=== PATIENT | female | born 1960 | race Caucasian/White ===

== ENCOUNTER → 2018-08-13 | Outpatient (CLI) | payer MEDICAID | LOC: M.RAD 08-07 08:39 | DX: Z12.31 Encounter for screening mammogram for malignant neoplasm of breast (principal); Z13.820 Encounter for screening for osteoporosis; M85.89 Other specified disorders of bone density and structure, multiple sites; Z78.0 Asymptomatic menopausal state ==

== ENCOUNTER → 2018-08-15 | Outpatient (CLI) | payer MEDICAID | LOC: M.ULTRA 12:11 | DX: I73.9 Peripheral vascular disease, unspecified (principal) ==

== ENCOUNTER → 2018-08-27 | Outpatient (CLI) | payer MEDICAID | LOC: M.ULTRA 07:10 | DX: N28.1 Cyst of kidney, acquired (principal) ==

== ENCOUNTER → 2018-09-13 | Outpatient (CLI) | payer MEDICAID | LOC: M.CT 09-06 13:37 | DX: I77.4 Celiac artery compression syndrome (principal); I70.202 Unspecified atherosclerosis of native arteries of extremities, left leg; I70.291 Other atherosclerosis of native arteries of extremities, right leg; K55.1 Chronic vascular disorders of intestine; R91.1 Solitary pulmonary nodule; N28.1 Cyst of kidney, acquired; F17.210 Nicotine dependence, cigarettes, uncomplicated ==

== ENCOUNTER → 2018-09-18 | Outpatient (CLI) | payer MEDICAID | LOC: M.NUC 09-17 07:45 | DX: R10.13 Epigastric pain (principal); K55.1 Chronic vascular disorders of intestine; I77.4 Celiac artery compression syndrome; F17.210 Nicotine dependence, cigarettes, uncomplicated; Z82.49 Family history of ischemic heart disease and other diseases of the circulatory system; Z83.3 Family history of diabetes mellitus; Z80.3 Family history of malignant neoplasm of breast; Z80.0 Family history of malignant neoplasm of digestive organs ==

== ENCOUNTER → 2018-09-27 | Outpatient (CLI) | payer MEDICAID ==
[~2018-09-27] VITALS: Ht 160 cm; Wt 49.4 kg
[~2018-09-27] MED LIST: ASPIR 8181 MG PO; ATORVASTATIN CA40 MG PO; CARVEDILOL3.125 MG PO; NITROGLYCERIN0.4 MG SUBLING; PAXIL10 MG PO; PLAVIX 75 MG TA75 M1 PO; SPIRONOLACTONE25 M1 PO
[2018-09-27 14:05] VITALS: BP 124/77
== END ==
LOC: M.INT 09-24 14:00
DX: I74.5 Embolism and thrombosis of iliac artery (principal); I70.212 Atherosclerosis of native arteries of extremities with intermittent claudication, left leg; Z79.899 Other long term (current) drug therapy; F17.210 Nicotine dependence, cigarettes, uncomplicated

== ENCOUNTER 2018-10-05 08:01 | Inpatient (IN) | payer MEDICAID ==
[2018-10-05] VITALS (15 sets, daily range): BP systolic 97–135; BP diastolic 40–83
[~2018-10-05] VITALS: Ht 160 cm; Wt 48.5 kg
[~2018-10-05 08:01] MED LIST changes: -ASPIR 8181 MG PO; -ATORVASTATIN CA40 MG PO; -CARVEDILOL3.125 MG PO; -NITROGLYCERIN0.4 MG SUBLING; -PLAVIX 75 MG TA75 M1 PO; -SPIRONOLACTONE25 M1 PO
[2018-10-05 08:49] LABS: HEMATOCRIT 38.2 % (37.0-47.0); HEMOGLOBIN 13.3 gm/dL (12.0-15.0); MCH 33.2 pg (26.0-34.0); MCHC 34.8 g/dL (28.0-37.0); MCV 95.2 fL (80.0-100.0); MPV 6.4 fl. (7.2-11.1); RBC 4.01 mil/uL (4.20-5.00); RDW-CV 13.2 % (10.5-14.5); WBC 10.7 thou/uL (4.0-11.0)
[2018-10-05 08:55] LABS: CALCIUM 8.9 mg/dL (8.5-10.1); POTASSIUM 4.1 mmol/L (3.5-5.1)
[2018-10-05 08:56] LABS: PROTIME 9.9 Seconds (9.20-11.50)
--- NOTE | 2018-10-05 15:01 | EKG ---
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
--- NOTE | 2018-10-05 16:23 | NUR ---
PRIOR TO TRANSFER TO THE ICU, PATIENT RECEIVED 600MG PLAVIX PO.
[2018-10-05 16:35] LABS: TROPONIN-I LEVEL 0.68 ng/mL (<0.06)
--- NOTE | 2018-10-05 16:46 | EKG ---
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1960 Requested By: Gabriel Guzmán Order Number: [id number] Olga MD: Rafael Mcmanus Measurements Intervals [place] Rate: 73 P: 81 [place]: 135 QRS: 75 QRSD: 82 T: 66 QT: 412 QTc: 454 Interpretive Statements Sinus rhythm Borderline low voltage, extremity leads Compared to ECG 10/05/2018 13:34:34 Myocardial infarct finding no longer present Electronically Signed On 10-05-2018 16:46:32 CDT by Rafael Mcmanus [email or web address] <ELECTRONICALLY SIGNED> By: Rafael Mcmanus MD, [facility] 10/05/18 1646 1547 1547 Rafael Mcmanus MD, [facility] /EPI
--- NOTE | 2018-10-05 16:56 | 2DMMODE ---
[place] [address] 2 D/M-MODE ECHOCARDIOGRAM Name: MISJOAO JARED Room: [address] IN [facility]#: [id number] Admission: 10/05/18 Attend Phys: Gabriel Guzmán Discharge: Date of : 60 Date of Service: 10/05/18 1656 Report #: [id number] THIS REPORT FOR: //name// APPROVED REPORT Study performed: 10/05/2018 15:16:26 EXAM: Comprehensive 2D, Doppler, and color-flow Echocardiogram Patient Location: In-Patient Room #: [facility] [place] Status: 3 BSA: 1.56 HR: 79 bpm BP: 117/81 mmHg Rhythm: NSR Other Information Study Quality: Good Indications Acute MA Chest Pain 2D Dimensions IVSd: 8.59 (7-11mm) LVOT Diam: 18.34 (18-24mm) LVDd: 41.83 mm PWd: 7.63 (7-11mm) Ascending Ao: 27.79 (22-36mm) LVDs: 29.94 (25-40mm) Aortic Root: 26.73 mm Volumes Left Atrial Volume (Systole) LA ESV Index: 19.30 mL/m2 Aortic Valve AoV Peak Dylan.: 1.27 m/s AO Peak Gr.: 6.46 mmHg LVOT Max P.02 mmHg AO Mean Gr.: 3.20 mmHg LVOT Mean P.94 mmHg LVOT Max V: 0.71 m/s AO V2 VTI: 26.32 cm LVOT Mean V: 0.44 m/s LAMAR (VTI): 1.65 cm2 LVOT V1 VTI: 16.44 cm Mitral Valve E/A Ratio: 1.03 MV Decel. Time: 147.11 [place] [address] 2 D/M-MODE ECHOCARDIOGRAM Name: JOAO ABEBE Room: [address] IN .R.#: [id number] Admission: 10/05/18 Attend Phys: Gabriel Guzmán Discharge: Date of : 60 Date of Service: 10/05/18 1656 Report #: [id number] MV E Max Dylan.: 0.69 m/s MV PHT: 42.66 ms MVA (PHT): 5.16 cm2 TDI E/Lateral E': 7.67 E/Medial E': 8.63 Medial E' Dylan.: 0.08 m/s Lateral E' Dylan.: 0.09 m/s Pulmonary Valve PV Peak Dylan.: 0.75 m/s PV Peak Gr.: 2.22 mmHg Tricuspid Valve RAP Estimate: 5.00 mmHg TR Peak Gr.: 18.72 mmHg RVSP: 23.00 mmHg PA Pressure: 23.00 mmHg Left Ventricle The left ventricle is normal size. Regional wall motion abnormalities are noted. severe hypokinesis noted of the mid and distal anteroseptal wall and apex There is normal left ventricular wall thickness. Left ventricular systolic function is moderately decreased. LVEF is 35-40%. The left ventricular diastolic function is normal. Right Ventricle The right ventricle is normal size. The right ventricular systolic function is normal. Atria The left atrium size is normal. The right atrium size is normal. Aortic Valve Mild aortic valve sclerosis. No aortic regurgitation is present. There is no aortic valvular stenosis. Mitral Valve The mitral valve is normal in structure. Trace mitral regurgitation. No evidence of mitral valve stenosis. Tricuspid Valve The tricuspid valve is normal in structure. Trace tricuspid regurgitation. No pulmonary hypertension. [place] [address] 2 D/M-MODE ECHOCARDIOGRAM Name: JOAO ABEBE Room: [address] IN [facility]#: [id number] Admission: 10/05/18 Attend Phys: Gabriel Guzmán Discharge: Date of : 60 Date of Service: 10/05/18 1656 Report #: [id number] Pulmonic valve is not well visualized. Trace pulmonic regurgitation. Great Vessels The aortic root is normal in size. IVC is normal in size and collapses >50% with inspiration. Pericardium There is no pericardial effusion. <Conclusion> LVEF is 35-40%. Regional wall motion abnormalities are noted. severe hypokinesis noted of the mid and distal anteroseptal wall and apex <ELECTRONICALLY SIGNED> By: Rafael Mcmanus MD, [facility] 10/05/18 1656 1656 1656 Rafael Mcmanus MD, FAC /INF
[2018-10-06] VITALS (25 sets, daily range): BP systolic 83–116; BP diastolic 47–64
[2018-10-06 04:15] LABS: HEMATOCRIT 30.9 % (37.0-47.0); MCH 33.3 pg (26.0-34.0); MCHC 34.7 g/dL (28.0-37.0); MCV 95.9 fL (80.0-100.0); MPV 6.9 fl. (7.2-11.1); RBC 3.22 mil/uL (4.20-5.00); RDW-CV 13.3 % (10.5-14.5); WBC 13.7 thou/uL (4.0-11.0)
[2018-10-06 04:36] LABS: HEMOGLOBIN 10.7 gm/dL (12.0-15.0)
[2018-10-06 04:47] LABS: ALBUMIN 2.9 g/dL (3.4-5.0); ALKALINE PHOSPHATASE 66 U/L (46-116); ANION GAP 9 mmol/L (7-16); BUN 11 mg/dL (7-18); CALCIUM 8.2 mg/dL (8.5-10.1); CHLORIDE 105 mmol/L (98-107); CHOLESTEROL 157 mg/dL (<200); CK-MB MASS 20.6 ng/mL (<0.5-3.6); CO2 25 mmol/L (21-32); CREATININE 0.9 mg/dL (0.6-1.3); GLUCOSE 117 mg/dL (70-99); HDL CHOLESTEROL 38 mg/dL (>40); LDL CHOLESTEROL 97 mg/dL (<100); POTASSIUM 4.1 mmol/L (3.5-5.1); SGOT 44 U/L (15-37); SGPT 19 U/L (30-65); SODIUM 139 mmol/L (136-145); TC:HDL 4.1 Ratio (Not establshd); TOTAL BILIRUBIN 0.5 mg/dL (<0.1-1.0); TRIGLYCERIDE 114 mg/dL (<150); VLDL 23 mg/dL (<40)
[2018-10-06 04:59] LABS: SERUM ASSESSMENT CLEAR; TROPONIN-I LEVEL 8.25 ng/mL (<0.06)
--- NOTE | 2018-10-06 06:59 | NUR ---
VITALS STABLE, AFEBRILE. PATIENT SLEEPING THROUGH THE NIGHT. PAIN MED X1 FOR LEFT HIP PAIN. DENIES CHEST PAIN, SOB, NAUSEA, SWEATING. NSR ON THE MONITOR. ABLE TO TURN SELF IN BED. CALL LIGHT WITHIN REACH.
--- NOTE | 2018-10-06 13:11 | CON ---
[facility] [address] [place] [address] CONSULTATION Name: JOAO ABEBE Room: [address] ADM IN M.R.#: [id number] Admission: 10/05/18 Attend Phys: Jorge Clark Discharge: Date of : 60 Report #: [id number] THIS REPORT FOR: //name// CC: Leonard Guzmán DATE OF SERVICE: 10/05/2018 HISTORY OF PRESENT ILLNESS: The patient is a 58-year-old white female who I was asked to see in the hospital today after she complained of chest pain. The patient has no previous history of heart disease. She is not very active at this time. The history is obtained from the patient's who was present. Recently, the patient complained of exertional leg pain that had been going on for about a year. Now, she can walk less than 50 feet before developing leg pain. She denied a history of chest pain, shortness of breath, palpitations. She was seen by Dr. Cornell who felt she had evidence of PAD. She was taken to the Interventional Radiology laboratory today. He performed bilateral iliac angiograms from the left femoral artery and right common femoral artery. She had stents placed in both common iliacs with reperfusion. She was given Angiomax. Dr. Cornell placed a Mynx closure device in the left femoral artery. She then began to complain of severe chest pain. ECG showed evidence of an acute anterior STEMI. I was asked to see her on an emergent basis. At this time, she continues to have chest pain. She denies previous chest pain, shortness of breath or syncope. PAST MEDICAL HISTORY: Significant for no major surgical procedures. MEDICATIONS: She is on no medications. ALLERGIES: She has no known drug allergies. SOCIAL HISTORY: She is and lives in [place], smokes greater than a pack of cigarettes a day. No alcohol abuse. REVIEW OF SYSTEMS: No history of stroke, asthma, peptic ulcer disease, liver disease, kidney disease, cancer, psychiatric illness, chronic skin condition. PHYSICAL EXAMINATION: GENERAL: Revealed an elderly appearing female who appeared in moderate distress because of chest pain. VITAL SIGNS: Her blood pressure is 110/70, pulse is 90. HEENT: Mucous membranes are moist. NECK: Neck veins do not appear distended. CHEST: [place] [address] CONSULTATION Name: JOAO ABEBE Room: [address]#: [id number] Admission: 10/05/18 Attend Phys: Jorge Clark Discharge: Date of : 60 Report #: [id number] CARDIOVASCULAR: Regular rate and rhythm. No significant murmur. ABDOMEN: Soft. EXTREMITIES: Had no edema. SKIN: Cool and dry. NEUROLOGIC: She is moving all extremities. LABORATORY DATA: ECG showed sinus rhythm and ST segment elevation in V1, V2 and V3. Lab work today, sodium 144, creatinine 1.0, glucose 101. White blood cell count 17.7, hemoglobin 13.3. She had no recent chest x-ray. IMPRESSION AND RECOMMENDATION: 1. Acute anterior ST elevation myocardial infarction. Recommend urgent cardiac catheterization. 2. Tobacco abuse. 3. Peripheral arterial disease with recent stenting. <ELECTRONICALLY SIGNED> By: Rafael Mcmanus MD, FACC 10/06/18 1311 1440 [id number] Mcmanus MD, FACC /nt
--- NOTE | 2018-10-06 13:45 | EKG ---
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 10/06/18 1345 0729 0729 Rafael Mcmanus MD, [facility] /EPI
[2018-10-06 15:43] LABS: CK-MB MASS 11.8 ng/mL (<0.5-3.6)
[2018-10-06 15:44] LABS: TROPONIN-I LEVEL 5.47 ng/mL (<0.06)
--- NOTE | 2018-10-06 17:28 | NUR ---
PT ASSESSMENT CHARTED. VSS THROUGHOUT SHIFT. BP SOFT AFTER GIVING MORNING DOSE OF COREG BUT PATIENT'S BLOOD PRESSURE CAME BACK UP. HELD 1700 DOSE OF COREG. UP AD ABIMBOLA. NO COMPLAINTS OF CHEST PAIN. SOME PAIN IN LEFT HIP/BACK AREA RELIEVED WITH PRN HYDROCODONE. 2 FEMORAL SITES ARE CD&I. NO OTHER CHANGES. REPORT GIVEN TO TELEMETRY NURSE. PATIENT TRANSFERED TO ROOM 212 VIA WHEELCHAIR.
--- NOTE | 2018-10-06 17:37 | NUR ---
ICU TRANSFER TO 212 PATIENT TO VIA PERSONAL BELONGINGS SENT PATIENT ORIENTED TO AND CALL LIGHT
[2018-10-07] VITALS (7 sets, daily range): BP systolic 92–111; BP diastolic 50–66
[2018-10-07 05:09] LABS: ALBUMIN 2.9 g/dL (3.4-5.0); CALCIUM 8.4 mg/dL (8.5-10.1); CREATININE 0.9 mg/dL (0.6-1.3); POTASSIUM 3.8 mmol/L (3.5-5.1)
[2018-10-07 05:14] LABS: HEMATOCRIT 31.4 % (37.0-47.0); MCH 33.6 pg (26.0-34.0); MCHC 35.1 g/dL (28.0-37.0); MCV 95.7 fL (80.0-100.0); MPV 6.8 fl. (7.2-11.1); RBC 3.28 mil/uL (4.20-5.00); RDW-CV 13.3 % (10.5-14.5)
[2018-10-07 05:44] LABS: CK-MB MASS 4.9 ng/mL (<0.5-3.6)
[2018-10-07 06:13] LABS: TROPONIN-I LEVEL 4.55 ng/mL (<0.06)
--- NOTE | 2018-10-07 06:50 | NUR ---
ASSUMED PT CARE AT 1930. NURSING ASSESSMENT COMPLETED AT START OF SHIFT. 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 DENIES CHEST PAIN THIS SHIFT. HOURLY ROUNDING COMPLETED. CALL LIGHT WITHIN REACH.
--- NOTE | 2018-10-07 07:15 | NUR ---
CHANGE OD SHIFT, BEDSIDE REPORT GIVEN PATIENT SEEN AT BEDSIDE, IN BED ASLEEP ASSUMED PATIENT CARE
[2018-10-07] MEDS ORDERED: ASPIR 8181 MG PO (14:09)
[2018-10-07] MEDS ORDERED: ATORVASTATIN CA40 MG PO ×2 (14:11→14:12)
[2018-10-07] MEDS ORDERED: CARVEDILOL3.125 MG PO (14:13)
[2018-10-07] MEDS ORDERED: PLAVIX 75 MG TA75 M1 PO (14:19)
[2018-10-07] MEDS ORDERED: SPIRONOLACTONE25 M1 PO (14:27)
[2018-10-07] MEDS ORDERED: NITROGLYCERIN0.4 MG SUBLING (14:33)
--- NOTE | 2018-10-07 20:05 | NUR ---
PATIENT DISCHARGED AT 1935 VIA WHEELCHAIR ON PRIVATE VEHICLE HOME. DISCHARGE INSTRUCTIONS REVIEWED WITH PATIENT, INCLUDING F/U APPOINTMENTS. PT VERBALIZED UNDERSTANDING. ALLOWED TIME TO ANSWER QUESTIONS. IV DISCONTINUED, HEART MONITOR REMOVED. MED SCRIPTS GIVEN TO PATIENT.
--- NOTE | 2018-10-08 14:53 | CARD ---
[facility] [address] [place] [address] CARDIAC CATH REPORT Name: JOAO ABEBE Room: [address] IN ..#: [id number] Admission: 10/05/18 Attend Phys: Jorge Clark Discharge: 10/07/18 Date of : 60 Report #: [id number] THIS REPORT FOR: //name// APPROVED REPORT Study performed: 10/05/2018 09:32:10 Patient Details Patient Status: Out-Patient Room #: The patient is a 58 year-old female Procedures Performed cath pci Indication Abnormal ECG, STEMI , Chest pain Risk Factors Peripheral Vascular Disease, Tobacco History () Admission/Lab Medications/Medications given during procedure Glycoprotein IllbIlla Inhibitors, Thrombin Inhibitors Procedure Narrative The right coronary system was accessed and visualized with a 3drc catheter catheter. The left coronary system was accessed and visualized with a Diagnostic catheter. Left ventricular/Aortic Valve gradient assessed via catheter pullback. Closure device was deployed with a 6 Fr Angioseal. The patient tolerated the procedure well and there were no complications associated with the procedure. There was no hematoma. The patient was brought to [facility] as an outpatient by dr. Leonard Cornell for evaluation of claudication. She underwent lower extremity arteriogram and bilateral common iliac stenting via the right and left femoral artery. Dr. Cornell had finished the procedure and had placed a mynx device in the left femoral artery. The patient began to complain of severe chest pain, and stat ecg showed anterior st elevation. A code STEMI was activated. The cardiac cath was performed through the 6 algerian sheath that had been placed in the right femoral artery. Coronary Angiography The patient's coronary anatomy is right [place] [address] CARDIAC CATH REPORT Name: JOAO ABEBE JARED Room: [address]#: [id number] Admission: 10/05/18 Attend Phys: Jorge Clark Discharge: 10/07/18 Date of : 60 Report #: [id number] Left Main 0% stenosis LAD 100% proximal occlusion with thrombus Circumflex 0% stenosis Right Coronary 30% mid stenosis Left Ventriculography Left Ventriculography was not performed. Hemodynamics The left ventricular end diastolic pressure is 30 mmHg. There was no gradient across the aortic valve upon pullback. Pullback from the left ventricle to the aorta revealed no gradient across the aortic valve. PCI Technique Lesion Anticoagulation was achieved with Angiomax. iv aggrastat was given Percutaneous coronary intervention was performed on the proximal left anterior descending artery segment. The lesion stenosis prior to intervention was 100% with THIAGO 0 flow. A xb 3.0 Guide Catheter was used to engage the lm ostium. A bmw Interventional Guidewire was used to cross the lesion. BALLOON DILATION A Balloon catheter 2.5 x 8 mm was inserted and inflated up to 10atm for 10seconds. Repeat angiography revealed the following post-dilatation results: 80% stenosis with thrombus. STENT DEPLOYMENT A drug-eluting stent 2.5 x 28 mm was inserted and inflated up to 12atm for 10seconds. Repeat angiography revealed the following post-stent deployment results: 0% stenosis. Final angiography reveals 0 % stenosis with THIAGO 3 flow. Conclusion 1. acute occlusion of the proximal lad 2. successful placement of a drug eluting stent Recommendations Smoking Cessation Cardiac Rehabilitation Referral [facility] [address] CARDIAC CATH REPORT Name: JOAO ABEBE Room: [address] IN .R.#: [id number] Admission: 10/05/18 Attend Phys: Jorge Clark Discharge: 10/07/18 Date of : 60 Report #: [id number] Medications Administered Clopidogrel <ELECTRONICALLY SIGNED> By: Rafael Mcmanus MD, FACC 10/08/18 1453 1453 1453Dalyson Mcmanus MD, FAC /INF
== END 2018-10-07 19:35 | disposition home or self-care (01) | DRG 247 ==
LOC: M.INT 08:01 → M.ICU 15:00 → M.TBA-CV 15:00 → M.ICU 15:01 → M.2W 10-06 17:30
PROVIDERS: Radiology Diagnostic Radiology; ADMIT Internal Medicine
PROC: 027034Z Dilation of Coronary Artery, One Artery with Drug-eluting Intraluminal Device, Percutaneous Approach (ICD-10-PCS; principal; 2018-10-05)
PROC: 047D3D6 (ICD-10-PCS; principal; 2018-10-05)
PROC: 047J3D6 (ICD-10-PCS; principal; 2018-10-05)
PROC: B4181ZZ Fluoroscopy of Bilateral Renal Arteries using Low Osmolar Contrast (ICD-10-PCS; principal; 2018-10-05)
PROC: B41D1ZZ Fluoroscopy of Aorta and Bilateral Lower Extremity Arteries using Low Osmolar Contrast (ICD-10-PCS; principal; 2018-10-05)
PROC: 4A023N7 Measurement of Cardiac Sampling and Pressure, Left Heart, Percutaneous Approach (ICD-10-PCS; principal; 2018-10-05)
PROC: B2111ZZ Fluoroscopy of Multiple Coronary Arteries using Low Osmolar Contrast (ICD-10-PCS; principal; 2018-10-05)
DX: I21.3 ST elevation (STEMI) myocardial infarction of unspecified site (principal); I42.9 Cardiomyopathy, unspecified; K27.9 Peptic ulcer, site unspecified, unspecified as acute or chronic, without hemorrhage or perforation; I70.212 Atherosclerosis of native arteries of extremities with intermittent claudication, left leg; F43.10 Post-traumatic stress disorder, unspecified; F17.200 Nicotine dependence, unspecified, uncomplicated; I25.10 Atherosclerotic heart disease of native coronary artery without angina pectoris; E88.09 Other disorders of plasma-protein metabolism, not elsewhere classified; Z71.6 Tobacco abuse counseling

== ENCOUNTER → 2018-10-23 | Outpatient (CLI) | payer MEDICAID ==
[~2018-10-23] MED LIST changes: +ASPIR 8181 MG PO; +ATORVASTATIN CA40 MG PO; +CARVEDILOL3.125 MG PO; +NITROGLYCERIN0.4 MG SUBLING; +PLAVIX 75 MG TA75 M1 PO; +SPIRONOLACTONE25 M1 PO
== END ==
LOC: M.ULTRA 13:08
DX: G45.9 Transient cerebral ischemic attack, unspecified (principal); I73.9 Peripheral vascular disease, unspecified